=== PATIENT | male | born 1995 | race Caucasian/White ===

== ENCOUNTER 2023-09-28 14:41 | Inpatient (IN) | payer MEDICAID ==
[~2023-09-28] VITALS: Ht 172.7 cm; Wt 130.6 kg
[2023-09-28 14:45] VITALS: BP 149/92; PULSE 73; RESP 18; TEMP 98.1; O2SAT 96
--- NOTE | 2023-09-28 15:01 | NUR ---
DR RESENDIZ AT BEDSIDE FOR PT EVALUATION
[2023-09-28 15:21] LABS: BASOPHILS # (AUTO) 0.1 K/uL (0.00-0.22); BASOPHILS % (AUTO) 0.5 % (0.0-2.0); EOSINOPHILS # (AUTO) 0.3 K/uL (0-0.4); EOSINOPHILS % (AUTO) 2.7 % (0.0-4.0); HEMATOCRIT 44.7 % (36-52); HEMOGLOBIN 15.4 g/dL (12.0-18.0); LYMPHOCYTES # (AUTO) 3.6 K/uL (2.0-11.5); LYMPHOCYTES % (AUTO) 33.6 % (20.5-51.1); MEAN CORPUSCULAR HEMOGLOBIN 28 pg (27-31); MEAN CORPUSCULAR HGB CONC 35 g/dL (33-37); MEAN CORPUSCULAR VOLUME 81.3 fL (80-94); MONOCYTES # (AUTO) 0.7 K/uL (0.8-1.0); MONOCYTES % (AUTO) 6.6 % (1.7-9.3); NEUTROPHILS # (AUTO) 6.2 K/uL (1.8-7.7); NEUTROPHILS % (AUTO) 56.6 % (42.2-75.2); PLATELET COUNT (AUTO) 192 K/uL (140-450); RED CELL DISTRIBUTION WIDTH 13.7 % (11.6-13.7); WHITE BLOOD COUNT (AUTO) 10.9 K/uL (4.8-10.8)
[2023-09-28] MEDS: ASPIRIN 81 MG TAB.CHEW PO ONE (15:25)
[2023-09-28] MEDS: DILTIAZEM 25 MG/5 ML VIAL IVP ONE ×2 (15:28→16:37)
[2023-09-28 15:29] LABS: ANION GAP 14.3 (8-16); CALCIUM 8.8 mg/dL (8.5-10.1); CARBON DIOXIDE 25.6 mmol/L (21-32); CREATININE 0.8 mg/dL (0.6-1.3); POTASSIUM 3.9 mmol/L (3.5-5.1)
--- NOTE | 2023-09-28 15:40 | NUR ---
PATIENT PRESENTS TO ED WITH PALPITATIONS . PT STATES HE FEELS A FLUTTERING FEELING IN HIS CHEST . DENIES N/V/D; SKIN IS PINK/WARM/DRY; AAOX4 WITH EVEN AND STEADY GAIT; LUNGS CLEAR BL; HR IRREGULAR AND RAPID; PT DENIES ANY FEVER, CP, SOB, OR COUGH AT THIS TIME; PATIENT STATES PAIN OF 0/10 AT THIS TIME; VSS; PATIENT POSITIONED FOR COMFORT; HOB ELEVATED; BEDRAILS UP X2; BED DOWN. ER MD MADE AWARE OF PT STATUS.
--- NOTE | 2023-09-28 15:42 | NUR ---
MEDS GIVEN PER ORDER
[2023-09-28 15:43] LABS: PARTIAL THROMBOPLASTIN TIME 23.9 secs (22-35.6); PROTHROMBIN TIME 10.5 secs (10.8-13.4)
[2023-09-28 15:45] LABS: ALANINE AMINOTRANSFERASE 129 U/L (12-78); ALBUMIN 3.8 g/dL (3.4-5.0); ALKALINE PHOSPHATASE 88 U/L (50-136); ASPARTATE AMINOTRANSFERASE 45 U/L (15-37); BILIRUBIN,DIRECT 0.1 mg/dL (0.0-0.3); THYROID STIMULATING HORMONE 2.74 uIU/mL (0.34-3.74); TOTAL BILIRUBIN 0.3 mg/dL (0.0-1.0); TOTAL PROTEIN, SERUM 8.1 g/dL (6.4-8.2)
--- NOTE | 2023-09-28 16:00 | NUR ---
PT WITH NO DISTRESS OR CO CP. RESTING AT EASE WITH CALL LIGHT IN REACH
--- NOTE | 2023-09-28 16:30 | NUR ---
PT WITH ONGOING RAPID HR, MD AWARE. ALL MEDS GIVEN PER ORDER
[2023-09-28] MEDS: MAG SULF 2000 MG/WATER PREMIX 50 ML IV ONE (16:53)
[2023-09-28] MEDS ORDERED: DILTIAZEM 125 MG in DEXTROSE 5% 100 ML IV ONE (18:20)
--- NOTE | 2023-09-28 18:30 | NUR ---
MD WILL ORDER DILTIZEM GTT, NOTIFIED PT AND
[2023-09-28] MEDS ORDERED: LISI-951 PO (18:38)
[2023-09-28] MEDS ORDERED: LOVENOX 1MG/KG Q12H SUBQ SCH (18:45)
[2023-09-28] MEDS ORDERED: HYDROcodone/APAP 5/325 MG 1 TAB TAB PO PRN (18:45)
[2023-09-28] MEDS ORDERED: ONDANSETRON 4 MG/2 ML VIAL IVP PRN (18:45)
[2023-09-28] MEDS ORDERED: ACETAMINOPHEN 325 MG TAB PO PRN (18:45)
[2023-09-28] MEDS ORDERED: DOCUSATE SODIUM 250 MG GELCAP PO PRN (18:45)
[2023-09-28] MEDS ORDERED: MORPHINE SULFATE 2 MG/ML SYR IVP PRN (18:45)
[2023-09-28] MEDS ORDERED: DILTIAZEM 125 MG in DEXTROSE 5% 100 ML IV SCH (18:55)
[2023-09-28] MEDS: DILTIAZEM 125 MG in DEXTROSE 5% 100 ML IV SCH (18:57)
--- NOTE | 2023-09-28 19:20 | NUR ---
Pt report given to LUCHO SAN. Transfer of care at this time.
--- NOTE | 2023-09-28 19:35 | NUR ---
FIRST CONTACT, ASSUMED CARE AT THIS TIME, PT BIB FROM HOME C/O PALPITATIONS, PT ON CARDIZEM DRIP 5ML/HR, HR 140S, A FIB RVR, DENIES ANY CHEST PAIN OR SOB, PRESSURE WITHIN LIMITS, PT IS A/OX4, GCS 15, DENIES OTHER CARDIAC HISTORY.
[2023-09-28] MEDS: FAMOTIDINE 20 MG TAB PO SCH (21:08)
[2023-09-28] MEDS: ENOXAPARIN 100 MG/ML SYR SUBQ SCH (21:10)
--- NOTE | 2023-09-28 21:14 | NUR ---
HOB ELEVATED, GIVEN ARIC CRACKERS AND SODA AT THIS TIME, TOLERATED WELL
[2023-09-28 23:00] VITALS: BP 109/76; PULSE 66; RESP 17; TEMP 99; O2SAT 97
--- NOTE | 2023-09-28 23:00 | NUR ---
Patient will be admitted to care of DR SOOD. Admited to ICU. Will go to room ICU 3. Belongings list completed. Report to ANIBAL SAN.
--- NOTE | 2023-09-28 23:00 | NUR ---
RECEIVED PT FROM ER VIA [employer].PT AMBULATED TOWARDS BED WITH STEADY GAIT. MONITORS ATTACHED. NSR NOTED ON MONITOR.PT ALERT AND ORIENTED X4.ON ROOM AIR.NO SOB NOTED.W/SALINE LOCK TO LT AC G18.PT ON CARDIAC DIET.DENIES N/V. PT ABLE TO VOID FREELY, VOIDED IN ER.SKIN INTACT. CALL LIGHT WITHIN REACH.BED IN LOW POSITION. SADDLE MAKERJASWINDER YEPEZ PUT CARDIZEM DRIP ON HOLD FOR NOW, PTS HR 58
[2023-09-28 23:30] VITALS: BP 109/69; PULSE 65; RESP 17; RESP 20; O2SAT 97
[2023-09-29] VITALS (17 sets, daily range): BP systolic 97–134; BP diastolic 46–80; PULSE 61–95; RESP 15–22; TEMP 97.7–98.8; O2SAT 95–98
--- NOTE | 2023-09-29 00:10 | NUR ---
PHONE CALL TO GREG WARDROBE ATTENDANT, SPOKE WITH MANAGER WOUND # [id number]
[2023-09-29 00:27] LABS: AMPHETAMINE, URINE NEGATIVE ng/ml (NEG <=1000); BARBITURATE, URINE NEGATIVE ng/ml (NEG <=200); BENZODIAZEPINE, URINE NEGATIVE ng/mL (NEG <=200); CANNABINOID, URINE NEGATIVE ng/mL (NEG <=50); COCAINE, URINE NEGATIVE ng/mL (NEG <=300); OPIATE, URINE NEGATIVE ng/mL (NEG <=2000); PHENCYCLIDINE SCREEN,URINE NEGATIVE ng/mL (NEG <=25)
--- NOTE | 2023-09-29 01:21 | NUR ---
PT EATING SANDWICH.DENIES N/V.DENIES PAIN. WILL CONTINUE TO CLOSELY MONITOR PT. HR AT THIS TIME 71 BP 103/57, PT DENIES "PALPITATIONS" AND VERBALIZED FEELING A LOT BETTER
--- NOTE | 2023-09-29 03:04 | NUR ---
PT ASLEEP; SR NOTED ON MONITOR.NO S/SX OFP AIN NOTED.NO SOB NOTED ON ROOM AIR.CALL LIGHT WITHIN REACH.BED IN LOW POSITION.WILL CONTINUE TO MONITOR PT
--- NOTE | 2023-09-29 05:07 | NUR ---
PT STILL SLEEPING, NO SOB NOTED ON ROOM AIR.SR NOTED ON MONITOR.CALL LIGHT WITHIN REACH
[2023-09-29 05:32] LABS: BASOPHILS % (AUTO) 0.4 % (0.0-2.0); EOSINOPHILS # (AUTO) 0.2 K/uL (0-0.4); EOSINOPHILS % (AUTO) 2.5 % (0.0-4.0); HEMOGLOBIN 14.9 g/dL (12.0-18.0); LYMPHOCYTES # (AUTO) 3.3 K/uL (2.0-11.5); LYMPHOCYTES % (AUTO) 37.2 % (20.5-51.1); MEAN CORPUSCULAR HEMOGLOBIN 29 pg (27-31); MEAN CORPUSCULAR HGB CONC 35 g/dL (33-37); MEAN CORPUSCULAR VOLUME 82.2 fL (80-94); MONOCYTES # (AUTO) 0.6 K/uL (0.8-1.0); MONOCYTES % (AUTO) 6.1 % (1.7-9.3); NEUTROPHILS # (AUTO) 4.8 K/uL (1.8-7.7); NEUTROPHILS % (AUTO) 53.8 % (42.2-75.2); PLATELET COUNT (AUTO) 192 K/uL (140-450); RED BLOOD CELL COUNT(AUTO) 5.23 MIL/uL (4.20-6.10); RED CELL DISTRIBUTION WIDTH 13.7 % (11.6-13.7)
[2023-09-29 05:38] LABS: ALBUMIN 3.6 g/dL (3.4-5.0); ANION GAP 6.2 (8-16); CALCIUM 8.9 mg/dL (8.5-10.1); CARBON DIOXIDE 28.5 mmol/L (21-32); CREATININE 0.9 mg/dL (0.6-1.3); MAGNESIUM 2.2 mg/dL (1.8-2.4); PHOSPHORUS 4.1 mg/dL (2.5-4.9); POTASSIUM 3.7 mmol/L (3.5-5.1); TOTAL BILIRUBIN 0.5 mg/dL (0.0-1.0); TOTAL PROTEIN, SERUM 7.6 g/dL (6.4-8.2)
--- NOTE | 2023-09-29 07:41 | NUR ---
ASSUMED PATIENT CARE FROM [facility] JASWINDER FELICIANO. PT IS ALERT AND ORIENTED X 4, VITALS SIGNS STABLE ON ROOM AIR. AFEBRILE.NORMOTENSIVE. NSR HR IN THE 70s-80s. DENIES HEADACHE, CHEST PAIN OR PALPITATION. EQUAL PULSES. OFF CARDIZEM SINCE 0 LAST NIGHT. RESPIRATION EVEN AND UNLABORED. CLEAR BREATH SOUNDS. NO COUGH. ABDOMEN ROUND, SOFT, NON-TENDER/NON-DISTENDED. PASSING GAS. LAST BM 09/27. ON CARDIAC DIET. CONTINENT TO BOTH BOWEL AND BLADDER. SKIN INTACT. SELF TURN IN BED. URINAL AT BEDSIDE. CALL LIGHT IN REACH. PLAN OF CARE REVIEWED. PENDING TTE AND CARDIOLOGY CONSULT.
--- NOTE | 2023-09-29 07:55 | NUR ---
GREG AIR ANALYSIS TECHNICIAN #[id number] UTILIZED TO TRANSLATE. ALL PATIENT'S QUESTIONS ANSWERED. PT PROVIDED HER PARTNER TAMAR MCGILL CONTACT INFORMATION: [phone]. TAMAR TO PICK HIM UP WHEN READY TO BE D/C'D. ADMITTING INFORMED TO UPDATE FACESHEET.
--- NOTE | 2023-09-29 08:07 | NUR ---
DR. MORAN MADE AWARE OF CONSULT AND REPLIED THANK YOU.
--- NOTE | 2023-09-29 08:44 | NUR ---
DR CORREIA ROUNDED IN ICU. PATIENT'S LABS, VITALS REVIEWED. AWARE PT PENDING CARDIO CONSULT AND TTE. PER DR CORREIA, LET CARDIO DECIDE ON DISPOSITION AND RESUMPTION OF ANTI-HYPERTENSIVE MED.
--- NOTE | 2023-09-29 10:36 | NUR ---
WAGE ADJUSTER AT BEDSIDE FOR TTE. PT AWARE AND NO FURTHER QUESTIONS.
[2023-09-29] MEDS ORDERED: DILTIAZEM 120 MG CAPER PO ONE (11:10)
--- NOTE | 2023-09-29 11:25 | NUR ---
DR MORAN AT BEDSIDE AND AWARE OF PATIENT CURRENT VITAL SIGNS, RHYTHM. BARK GRINDER DISCUSSING LVEF. MD MORAN CLEARED PT FOR DISCHARGE OR DOWNGRADE TO TELEMETRY
[2023-09-29] MEDS: DILTIAZEM 120 MG CAPER PO SCH (11:48)
--- NOTE | 2023-09-29 11:53 | NUR ---
AIRCRAFT DE ICER INSTALLER ID#[id number] UTILIZED TO TRANSLATE. PT INFORMED THAT HE HAS BEEN CLEARED BY FOOD DEMONSTRATOR AND CORPORATE EVENTS DIRECTOR, AWAITING FOR ATTENDING DR SOOD TO ROUND FOR TRANSFER TO TELE VS D/C HOME ORDER. INITIAL DOSE OF CARDIZEM GIVEN. PT EDUCATED ON SIDE EFFECTS. PT ALSO INFORMED HE WILL START TAKING ASPIRIN TOMORROW TO PREVENT BLOOD CLOTS AND INFORMED OF SIDE EFFECTS. NO FURTHER QUESTIONS. VITAL SIGNS STABLE. LUNCH PROVIDED. CALL LIGHT IN REACH, BEDSIDE TABLE AND URINAL WITHIN EASY REACH.
[2023-09-29] MEDS ORDERED: DILT-135 PO (13:14)
[2023-09-29] MEDS ORDERED: FAMO-90 PO (13:14)
[2023-09-29] MEDS ORDERED: ASPI-1856 PO (13:14)
--- NOTE | 2023-09-29 14:00 | NUR ---
PATIENT TOLERATED LUNCH. NO COMPLAINTS OF PAIN. RECEIVED D/C ORDER FROM DR SOOD. PT MADE AWARE.
--- NOTE | 2023-09-29 15:35 | NUR ---
AIRLINE PILOT/FIRST OFFICER ID #[id number] UTILIZED TO TRANSLATE. DISCHARGE INSTRUCTIONS EXPLAINED TO PATIENT INCLUDING HOME MEDICATIONS, DIET, ACTIVITY AND FOLLOW UP APPOINTMENTS REQUIRED. ALL QUESTIONS ANSWERED. PT'S PARTNER TAMAR TO NETBACKUP ADMIN PATIENT AFTER 1630 AFTER SHE COME OUT FROM WORK. PATIENT BELONGINGS: 2 CELLPHONE. VITAL SIGNS STABLE.
--- NOTE | 2023-09-29 16:45 | NUR ---
LEFT AC PIV REMOVED PER PROTOCOL. DRESSING APPLIED. NO BLEEDING NOTED. ID BAND REMOVED. PATIENT DISCHARGED HOME IN STABLE CONDITION ACCOMPANIED BY PARTNER TAMAR. PT PREFERRED TO AMBULATE TO THE PARKING LOT. DENIES DIZZINESS. GAIT STEADY. PATIENT HAS HIS 2 CELLPHONES AND D/C PACKET WHEN HE LEFT.
[2023-09-30] MEDS ORDERED: ECOTRIN 81 MG TABEC PO SCH (09:00)
== END 2023-09-29 16:45 | disposition home or self-care (01) | DRG 201 ==
LOC: MED 14:41 → MTU 18:53 → MIC 09-29 00:04
PROVIDERS: ADMIT Internal Medicine; ATTEND Internal Medicine
DX: I48.20 Chronic atrial fibrillation, unspecified (principal); E66.9 Obesity, unspecified; I10 Essential (primary) hypertension; Z88.8 Allergy status to other drugs, medicaments and biological substances; Z68.41 Body mass index [BMI] 40.0-44.9, adult
CPT/HCPCS: 36415; 71045; 80048; 80053; 80076; 80305; 83735; 83880; 84100; 84443; 84484; 85025; 85610; 85730; 87081; 93005; 96365; 96375; 96376; 99291; J1650; J3475; J3490; J7060; Q0092